=== PATIENT | female | born 1950 | race Caucasian/White ===

== ENCOUNTER 2022-12-29 19:06 | Emergency (ER) | payer MEDICARE, MEDICAID ==
[~2022-12-29] VITALS: Ht 175.3 cm; Wt 63.2 kg
[~2022-12-29 19:06] MED LIST: AMIO200T61 PO; APIX5TAB3 PO; DICY20TA2 PO; DIGO125T2 PO; LEVO50TA8 PO; METO25TA6 PO
[2022-12-29 23:59] LABS: BASOPHILS # (AUTO) 0.1 X10'3 (0-0.2); BASOPHILS % (AUTO) 1.5 % (0-1); EOSINOPHILS # (AUTO) 0.3 X10'3 (0-0.9); EOSINOPHILS % (AUTO) 4.3 % (0-6); HEMATOCRIT 33.8 % (35.0-45.0); HEMOGLOBIN 10.9 g/dl (12.0-16.0); LYMPHOCYTES % (AUTO) 13.9 % (21-51); MEAN CORPUSCULAR HGB CONC 32.2 g/dL (33.0-36.5); MEAN CORPUSCULAR VOLUME 105.7 FL (78-98); MEAN PLATELET VOLUME 6.7 FL (7.4-10.4); MONOCYTES # (AUTO) 0.8 X10'3 (0-0.9); MONOCYTES % (AUTO) 10.9 % (2-12); NEUTROPHILS # (AUTO) 4.9 X10'3 (1.8-7.7); NEUTROPHILS % (AUTO) 69.4 % (42-75); PLATELET COUNT 572 X10'3 (140-440); RED CELL DISTRIBUTION WIDTH 14.7 % (11.5-14.5); WHITE BLOOD COUNT 7.1 X10'3 (4.5-11.0)
[2022-12-30 00:09] LABS: ALANINE AMINOTRANSFERASE 11 U/L (12-78); ALBUMIN 2.2 G/DL (3.4-5.0); ALBUMIN/GLOBULIN RATIO 0.5 (1.1-1.5); ALKALINE PHOSPHATASE 101 IU/L (46-116); ANION GAP 5 (8-16); ASPARTATE AMINO TRANSFERASE 16 U/L (10-37); BILIRUBIN,TOTAL 0.4 MG/DL (0.1-1.0); BLOOD UREA NITROGEN 30 MG/DL (7-18); BUN/CREATININE RATIO 30.9 (6.6-38.0); CALCIUM 9.2 MG/DL (8.5-10.1); CHLORIDE 97 MMOL/L (99-107); CREATININE 0.97 MG/DL (0.40-0.90); GLUCOSE 108 MG/DL (70-104); LIPASE < 50 U/L (73-393); POTASSIUM 4.5 MMOL/L (3.5-5.1); SODIUM 133 MMOL/L (135-145); TOTAL PROTEIN 6.4 G/DL (6.4-8.2); eGFR 56 ML/MIN
[2022-12-30 00:26] LABS: PLATELET ESTIMATE INCREASED; SMUDGE CELLS FEW; TOTAL CELLS COUNTED 100
[2022-12-30] MEDS ORDERED: normal saline 1000ML IV soln IVB ONE ×2 (00:35→02:10)
[2022-12-30] MEDS ORDERED: lactulose 20gm/30ml cup PO ONE (00:40)
[2022-12-30] MEDS ORDERED: midazolam 1 mg/ML 2ml injection IV ONE ×2 (00:40→02:10)
[2022-12-30] MEDS ORDERED: magnesium hydroxide 30ml (MOM) UD suspension PO ONE (00:40)
[2022-12-30 01:55] LABS: CLARITY,URINE CLOUDY (Clear); COLOR,URINE YELLOW (Yellow); GLUCOSE, URINE NEGATIVE (Neg); KETONES,URINE NEGATIVE (Neg); LEUKOCYTE ESTERASE ,URINE LARGE (Neg); NITRITES, URINE POSITIVE (Neg); OCCULT BLOOD,URINE SMALL (Neg); PROTEIN,URINE NEGATIVE (Neg); UROBILINOGEN,URINE 0.2 E.U/dL (0.2-1.0)
[2022-12-30 02:00] LABS: UA COLLECTION TYPE FOLEY CATH
[2022-12-30 02:02] LABS: SQUAMOUS EPITHELIAL CELL,UR MANY /LPF (FEW); WBC,URINE TNTC /HPF (0-4)
[2022-12-30 02:03] LABS: BACTERIA,URINE 2+ /HPF (Neg)
[2022-12-30 02:05] LABS: RBC,URINE 20-50 /HPF (0-2)
[2022-12-30] MEDS ORDERED: CefTRIAXone 2gm/D5W 50ml BAG 50 ML IV ONE (02:20)
[2022-12-30] MEDS ORDERED: CEPH-585 PO (02:21)
[2022-12-30 03:19] VITALS: BP 98/61
== END 2022-12-30 03:22 | disposition home or self-care (01) ==
LOC: ER 19:06
DX: K59.00 Constipation, unspecified (principal); N39.0 Urinary tract infection, site not specified
CPT/HCPCS: 36415; 74176; 80053; 81001; 83690; 85007; 85025; 87088; 96361; 96365; 96375; 96376; 99285; J0696; J2250; J7030; J7040; 99284